=== PATIENT | female | born 1990 | race African-American/Black ===

== ENCOUNTER → 2017-01-28 | Outpatient (CLI) | payer BC ==
[~2017-01-28] MED LIST: UNKNOWN ABX PO
[2017-01-31 01:46] LABS: CHLAMYDIA TRACH RNA*** NOT DETECTED (NOT DETECTED); GC (NEIS GONORRHOEAE)RNA** NOT DETECTED (NOT DETECTED)
== END | disposition home or self-care (01) ==
LOC: C.LABSPEC 17:41
PROVIDERS: ATTEND Physician Assistant
DX: Z01.419 Encounter for gynecological examination (general) (routine) without abnormal findings (principal)

== ENCOUNTER 2017-04-11 21:09 | Emergency (ER) | payer SELFPAY ==
[~2017-04-11] VITALS: Ht 167.6 cm; Wt 79.9 kg
[2017-04-11 21:28] VITALS: TEMP 36.9; Ht 167.6 cm; Wt 79.9 kg
[2017-04-11] MEDS ORDERED: SODIUM CHLORIDE 0.9% 1000ML 1,000 ML IV STA (21:58)
[2017-04-11] MEDS ORDERED: MULT-513 PO (22:07)
[2017-04-11] MEDS ORDERED: KETOROLAC TROMETHAMINE 30 MG/ML VIAL IV STA (22:23)
[2017-04-11 22:36] VITALS: O2SAT 100
[2017-04-11 22:36] LABS: BASO % 0.2 %; BASO ABS # 0.02 K/uL (0-0.2); EOS % 1.6 %; EOS ABS # 0.14 K/uL (0-0.5); HEMATOCRIT 35.4 % (37-47); HEMOGLOBIN 12.2 g/dL (12.0-16.0); IG# 0.02 K/uL (0.00-0.02); LYMPH % 33.1 %; LYMPH ABS # 2.88 K/uL (1.2-3.4); MEAN CELL VOLUME 85.7 fL (80-100); MEAN CORPUSCULAR HEMOGLOBIN 29.5 pg (25-34); MEAN CORPUSCULAR HGB CONC 34.5 g/dl (32-36); MEAN PLATELET VOLUME 10.7 fL (7.4-10.4); MONO % 10.7 %; MONO ABS # 0.93 K/uL (0.11-0.59); NEUT % 54.2 %; NEUT ABS # 4.72 K/uL (1.4-6.5); PLATELET COUNT 245 K/uL (130-400); RED CELL DISTRIBUTION WIDTH CV 12.7 % (11.5-14.5); RED CELL DISTRIBUTION WIDTH SD 39.2 fL (36.4-46.3); WHITE BLOOD COUNT 8.71 K/uL (4.8-10.8)
[2017-04-11 22:53] LABS: ALBUMIN 3.5 gm/dl (3.4-5.0); ALT/SGPT 13 U/L (12-78); BLOOD UREA NITROGEN 16 mg/dl (7-18); CALCIUM 9.2 mg/dl (8.5-10.1); CARBON DIOXIDE 26 mmol/L (21-32); CREATININE 1.08 mg/dl (0.60-1.20); GLUCOSE 83 mg/dl (70-99); POTASSIUM 3.3 mmol/L (3.5-5.1); SODIUM 137 mmol/L (136-145)
[2017-04-11 22:56] LABS: ALKALINE PHOSPHATASE 79 U/L (45-117); AST/SGOT 12 U/L (15-37); TOTAL PROTEIN 8.3 gm/dl (6.4-8.2)
[2017-04-12] MEDS ORDERED: POTASSIUM CHLORIDE 10 MEQ TABCR PO STA (00:08)
[2017-04-12 00:45] VITALS: BP 101/69; PULSE 76; O2SAT 96
--- NOTE | 2017-04-12 06:09 | EMERGENCY ROOM VISIT NOTE ---
History First contact with patient: 21:54 Chief Complaint: ABDOMINAL PAIN Stated Complaint: WEAK, BAD CRAMPS Nursing Triage Summary: pt c/o abdominal cramping. states she is 1week late on her period and intermittent cramping began 4 days ago. states she has some nausea, no vomiting. denies diarrhea, urinary symptoms. also c/o weakness, states "I felt so weak today after I got out of the shower." upon assessment pt alert and oriented x4. pt breathing WNL. History of Present Illness The patient is a 26 year old female who presents to the Emergency Room with complaints of left lower suprapubic pain for the past few days who is late for her menstrual period. pain described as cramping and currently 4 out of 10. Movement makes it worse and nothing makes it better. Patient denies dysuria, hematuria, frequency, urgency, back pain, flank pain, vaginal itching or discharge, chest pain, dyspnea. She took a test at home and was negative. Review of Systems See HPI for pertinent positives & negatives. A total of 10 systems reviewed and were otherwise negative. Past Medical/Surgical History Medical Problems: (1) Major depressive disorder, recurrent severe without psychotic features (2) No pertinent past medical history Family History Patient reports no known family medical history. Social History Smoking Status: Never Smoker Alcohol Use: none Drug Use: none Marital Status: single Housing Status: lives with significant other Occupation Status: employed Current/Historical Medications Scheduled Multivitamins/Minerals (Mvi With Minerals), 1 TAB PO DAILY Physical Exam Vital Signs Date Time Temp Pulse Resp B/P (MAP) Pulse Ox O2 Delivery O2 Flow Rate FiO2 04/12/17 00:45 76 18 101/69 96 04/11/17 23:37 83 18 109/69 99 Room Air 04/11/17 22:37 77 18 117/90 100 Room Air 04/11/17 22:37 71 04/11/17 22:36 100 Room Air 04/11/17 21:28 36.9 90 18 122/74 97 Room Air Physical Exam VITALS: Vitals are noted on the nurse's note and reviewed by myself. Vital signs stable. GENERAL: Pleasant female, in no acute distress, nondiaphoretic, well-developed well-nourished. SKIN: The skin was without rashes, erythema, edema, or bruising. There is no tenting of the skin. Capillary reflex less than 2 seconds. HEAD: Normocephalic atraumatic. EARS: External auditory canals clear, tympanic membranes pearly mays without erythema or effusion bilaterally. EYES: Pupils equal round and reactive to light and accommodation. Conjunctivae without injection, sclerae without icterus. Extraocular movements intact. NOSE: Patent, turbinates without inflammation or discharge. MOUTH: Mucous membranes moist. . Pharynx without erythema or exudate. Uvula midline. Airway patent. Tongue does not deviate. NECK: Supple without nuchal rigidity. No lymphadenopathy. No thyromegaly. Cervical spine is nontender. No JVD. HEART: Regular rate and rhythm without murmurs gallops or rubs. LUNGS: Clear to auscultation bilaterally without wheezes, rales or rhonchi. No dullness to percussion. No retractions or accessory muscle use. ABDOMEN: Positive bowel sounds x 4. Normal tympanic percussion. Soft, tender to palpation suprapubic region, no CVA tenderness, without masses or organomegaly. Morales sign negative. No guarding or rebound tenderness. MUSCULOSKELETAL: No muscle atrophy, erythema, or edema noted. NEURO: Patient was alert and oriented to person place and time. Normal sensation to light and sharp touch. No focal neurological deficits. Medical Decision & Procedures Laboratory Results 04/11/17 22:08 Red Blood Count 4.13, Mean Corpuscular Volume 85.7, Mean Corpuscular Hemoglobin 29.5, Mean Corpuscular Hemoglobin Concent 34.5, Mean Platelet Volume 10.7, Neutrophils (%) (Auto) 54.2, Lymphocytes (%) (Auto) 33.1, Monocytes (%) (Auto) 10.7, Eosinophils (%) (Auto) 1.6, Basophils (%) (Auto) 0.2, Neutrophils # (Auto ) 4.72, Lymphocytes # (Auto) 2.88, Monocytes # (Auto) 0.93, Eosinophils # (Auto ) 0.14, Basophils # (Auto) 0.02 04/11/17 22:08 Test 04/11/17 22:00 04/11/17 22:08 Urine Color YELLOW Urine Appearance CLEAR (CLEAR) Urine pH 6.5 (4.5-7.5) Urine Specific [place] 1.013 (1.000-1.030) Urine Protein NEG (NEG) Urine Glucose (UA) NEG (NEG) Urine Ketones NEG (NEG) Urine Occult Blood NEG (NEG) Urine Nitrite NEG (NEG) Urine Bilirubin NEG (NEG) Urine Urobilinogen NEG (NEG) Urine Leukocyte Esterase TRACE (NEG) Urine WBC (Auto) 1-5 /hpf (0-5) Urine RBC (Auto) 0-4 /hpf (0-4) Urine Hyaline Casts (Auto) 0 /lpf (0-5) Urine Epithelial Cells (Auto) >30 /lpf (0-5) Urine Bacteria (Auto) NEG (NEG) Urine Test NEG (NEG) White Blood Count 8.71 K/uL (4.8-10.8) Red Blood Count 4.13 M/uL (4.2-5.4) Hemoglobin 12.2 g/dL (12.0-16.0) Hematocrit 35.4 % (37-47) Mean Corpuscular Volume 85.7 fL (80-100) Mean Corpuscular Hemoglobin 29.5 pg (25-34) Mean Corpuscular Hemoglobin Concent 34.5 g/dl (32-36) Platelet Count 245 K/uL (130-400) Mean Platelet Volume 10.7 fL (7.4-10.4) Neutrophils (%) (Auto) 54.2 % Lymphocytes (%) (Auto) 33.1 % Monocytes (%) (Auto) 10.7 % Eosinophils (%) (Auto) 1.6 % Basophils (%) (Auto) 0.2 % Neutrophils # (Auto) 4.72 K/uL (1.4-6.5) Lymphocytes # (Auto) 2.88 K/uL (1.2-3.4) Monocytes # (Auto) 0.93 K/uL (0.11-0.59) Eosinophils # (Auto) 0.14 K/uL (0-0.5) Basophils # (Auto) 0.02 K/uL (0-0.2) RDW Standard Deviation 39.2 fL (36.4-46.3) RDW Coefficient of Variation 12.7 % (11.5-14.5) Immature Granulocyte % (Auto) 0.2 % Immature Granulocyte # (Auto) 0.02 K/uL (0.00-0.02) Anion Gap 7.0 mmol/L (3-11) Est Creatinine Clear Calc Drug Dose 85.6 ml/min Estimated GFR () 83.2 Estimated GFR (Non- 71.8 BUN/Creatinine Ratio 15.0 (10-20) Calcium Level 9.2 mg/dl (8.5-10.1) Total Bilirubin 0.2 mg/dl (0.2-1) Direct Bilirubin < 0.1 mg/dl (0-0.2) Aspartate Amino Transf (AST/SGOT) 12 U/L (15-37) Alanine Aminotransferase (ALT/SGPT) 13 U/L (12-78) Alkaline Phosphatase 79 U/L (45-117) Total Protein 8.3 gm/dl (6.4-8.2) Albumin 3.5 gm/dl (3.4-5.0) Medications Administered Medications (Trade) Dose Ordered Sig/[place]ouard Route Start Time Stop Time Status Last Admin Dose Admin Sodium Chloride 1,000 ml @ 999 mls/hr Q1H1M STAT IV 04/11/17 21:58 04/11/17 22:58 DC 04/11/17 22:32 999 MLS/HR Ketorolac Tromethamine (Toradol Inj) 30 mg NOW STAT IV 04/11/17 22:23 04/11/17 22:24 DC 04/11/17 22:32 30 MG Potassium Chloride (Klor-Con M10) 20 meq NOW STAT PO 04/12/17 00:08 04/12/17 00:09 DC 04/12/17 00:42 20 MEQ ED Course Prior records/ancillary studies reviewed. Triage Nursing notes reviewed. Additional history obtained from boyfriend The patient's history was concerning for suprapubic abdominal pain. Differential diagnosis: Differential diagnosis includes salpingitis, , ectopic , incomplete , septic , ruptured ovarian cyst, ovarian torsion, Mittelschmerz, endometritis, dysmenorrhea, appendicitis, PID, and others. Physical examination findings: As above. ER treatment provided: Toradol On reassessment the patient felt better. Diagnostics interpreted by me: The labs revealed urine hCG. No leukocytosis Imaging studies: Ultrasound concerning for left ovarian cyst per radiology Exam and history seem consistent with left ovarian cyst. Patient was pain free after being medicated as above. She did not have acute abdomen on exam. She is well-appearing. She was not . She is advised to follow-up with OB in a few days and repeat pelvic ultrasound for resolution of cyst. She is advised to return to the ER immediately for severe pain, fevers, vomiting, worsening signs or symptoms or as needed. Patient and related out of the ER without difficulties with her friend. By the evaluation outlined above emergent etiologies such as salpingitis, , ectopic , incomplete , septic , ovarian torsion, Mittelschmerz, endometritis, dysmenorrhea, appendicitis, PID, as well as others were deemed relatively unlikely. The pt informed about the findings as listed above. All questions were answered and pleased with the treatment. Return instructions were outlined and the patient was discharged in stable condition. Referral: The patient was referred back to CH[facility] MANAGEMENT FACILITATOR for follow-up in 2 to 3 days for a recheck of the current condition. Case reviewed by attending The chart was completed utilizing [employer] voice recognition software. Grammatical errors, random word insertions, pronoun errors, and incomplete sentences are an occassional consequence of this system due to software limitations, ambient noise, and hardware issues. Any formal questions or concerns about the content, text, or information contained within the body of this dictation should be directly addressed to the physician hair assistant for clarification. Medical Decision As above Medication Reconcilliation Current Medication List: was personally reviewed by me Blood Pressure Screening Patient's blood pressure: Normal blood pressure Impression Primary Impression: Left ovarian cyst Departure Information Dispostion Home / Self-Care Condition GOOD Forms HOME CARE DOCUMENTATION FORM, IMPORTANT VISIT INFORMATION Patient Instructions My [facility], ED Cyst Ovarian Additional Instructions DO NOT drive, drink alcohol, operate machinery, or perform dangerous activities today. You were given medications in the ER that can affect your ability to safely function or operate a vehicle. Recommend repeat pelvic ultrasound in 6 weeks for resolution of cyst. Rest. Stay well hydrated. No strenuous activity until symptoms resolve. Ibuprofen(Motrin, Advil) may be used for fever or pain. Use 600mg every six hours as needed. Take with food. Avoid using more than 2400mg in a 24 hour period. Do not use 2400mg per day for more than three consecutive days without physician direction. Prolonged inappropriate use can lead to stomach upset or ulcers. (AND/OR) Acetaminophen(Tylenol) may be used for fever or pain. Use 1000mg every six hours as needed. Avoid using more than 3000mg in a 24 hour period. Rest and drink plenty of fluids as tolerated. Continue current medications. Return to the ER immediately for severe pain, heavy vaginal bleeding, abdominal pain, vomiting, fevers, chest pains, difficulty breathing, worsening of your condition, or as needed. Follow up with your CHANGE MANAGEMENT FACILITATOR in 2-3 days for a recheck of your current condition.
--- NOTE | 2017-04-12 06:44 | DIAGNOSTIC IMAGING REPORT ---
TRANSVAG-FEMALE PELVIS CLINICAL HISTORY: Pelvic pain. COMPARISON STUDY: None. FINDINGS: The uterus measures 7.7 x 3.9 x 5.3 cm. The endometrium is thickened, measuring 1.8 cm in thickness. The right ovary is normal, measuring 3.2 x 1.3 x 1.4 cm. The left ovary measures 3.1 x 1.5 x 3.1 cm. Note was made of a complex lesion which measures approximately 2.3 x 1.6 x 2 cm which likely arises from the left ovary. During real-time imaging, this did not appear to be separate from the left ovary. This lesion is hypoechoic. There is color flow within each ovary. Small amount of fluid within the pelvis was noted. IMPRESSION: 1. Complex 2.3 cm lesion arising from the left ovary. By report, urine test is negative. This favors a hemorrhagic/corpus luteal cyst however a follow-up pelvic ultrasound in 6 weeks to ensure resolution is recommended. 2. No sonographic evidence of ovarian torsion. 3. Endometrial thickening of 1.8 cm which could be correlated with menstrual cycle. Electronically signed by: Dylon Callaway M.D. 04/12/2017 6:43 AM Dictated Date/Time: 04/12/2017 6:32 AM
== END 2017-04-12 00:45 | disposition home or self-care (01) ==
LOC: C.EDB 21:10 → C.EDC 04-12 00:45
DX: N83.202 Unspecified ovarian cyst, left side (principal); F33.2 Major depressive disorder, recurrent severe without psychotic features

== ENCOUNTER 2017-06-14 17:47 | Emergency (ER) | payer SELFPAY ==
[~2017-06-14] VITALS: Ht 167.6 cm; Wt 80.7 kg
[~2017-06-14 17:47] MED LIST changes: +MULT-513 PO; -UNKNOWN ABX PO
[2017-06-14 17:48] VITALS: TEMP 36.8; Ht 167.6 cm; Wt 80.7 kg
[2017-06-14 19:21] LABS: BASO % 0.3 %; BASO ABS # 0.02 K/uL (0-0.2); EOS % 1.7 %; EOS ABS # 0.12 K/uL (0-0.5); HEMOGLOBIN 12.9 g/dL (12.0-16.0); IG# 0.01 K/uL (0.00-0.02); LYMPH % 39.7 %; LYMPH ABS # 2.77 K/uL (1.2-3.4); MEAN CELL VOLUME 85.1 fL (80-100); MEAN CORPUSCULAR HEMOGLOBIN 29.7 pg (25-34); MEAN CORPUSCULAR HGB CONC 34.9 g/dl (32-36); MEAN PLATELET VOLUME 10.3 fL (7.4-10.4); MONO % 6.6 %; MONO ABS # 0.46 K/uL (0.11-0.59); NEUT % 51.6 %; NEUT ABS # 3.59 K/uL (1.4-6.5); PLATELET COUNT 271 K/uL (130-400); RED CELL DISTRIBUTION WIDTH CV 12.5 % (11.5-14.5); RED CELL DISTRIBUTION WIDTH SD 38.6 fL (36.4-46.3); WHITE BLOOD COUNT 6.97 K/uL (4.8-10.8)
--- NOTE | 2017-06-14 19:38 | EMERGENCY ROOM VISIT NOTE ---
History Report prepared by Fatoumata: Tae Arthur Under the Supervision of: Dr. Joy Fields D.O. First contact with patient: 18:23 Chief Complaint: ABDOMINAL PAIN Stated Complaint: ABD PAIN Nursing Triage Summary: Pt c/o LLQ abd pain, intermittent, started last night. Nauseous. Hx ovarian cysts. LMP Apr 18. Pt states Negative 1 week ago. History of Present Illness The patient is a 26 year old female who presents to the Emergency Room with complaints of Waxing and waning left lower quadrant abdominal pain starting yesterday. The patient describes the pain as a sharp pain, and she states that it is worse with sitting up as well as walking. The patient additionally notes that she had pain during intercourse. She has no prior history of STDs and has no concern for exposure to STDs. She has not had any change in urine, and she has had no recent illness. The patient states that she has been constipated this week. She denies any vaginal discharge and bleeding. She has not had her period since April, and she states that multiple home tests have been negative. The patient notes that in April she was found to have an ovarian cyst, though she did not follow up with COMPOUND FILLER, and she was told that it would go away. She denies any fever, chills, cough, and other cold symptoms. She notes that she has a family history of ovarian cysts. Source of History: patient Onset: yesterday Position: abdomen (LLQ) Quality: sharp Timing: waxes/wanes Modifying Factors (Worsening): other (sitting up and walking around) Associated Symptoms: No fevers, No chills, No cough Review of Systems See HPI for pertinent positives & negatives. A total of 10 systems reviewed and were otherwise negative. Past Medical & Surgical Medical Problems: (1) Major depressive disorder, recurrent severe without psychotic features (2) No pertinent past medical history Family History Ovarian cyst Social History Smoking Status: Never Smoker Alcohol Use: none Drug Use: none Marital Status: single Housing Status: lives with significant other Occupation Status: employed Current/Historical Medications Scheduled Multivitamins/Minerals (Mvi With Minerals), 1 TAB PO DAILY Allergies Coded Allergies: No Known Allergies (Unverified , 06/14/17) Physical Exam Vital Signs Date Time Temp Pulse Resp B/P (MAP) Pulse Ox O2 Delivery O2 Flow Rate FiO2 06/14/17 21:53 79 20 127/82 98 06/14/17 20:43 81 18 132/85 97 Room Air 06/14/17 17:48 36.8 81 18 122/83 97 Room Air Physical Exam GENERAL: alert, well appearing, well nourished, no distress, non-toxic EYE EXAM: normal conjunctiva, PERRL and EOM's grossly intact OROPHARYNX: no exudate, no erythema, lips, buccal mucosa, and tongue normal and mucous membranes are moist NECK: supple, no nuchal rigidity, no adenopathy, non-tender LUNGS: Clear to auscultation. Normal chest wall mechanics HEART: no murmurs, S1 normal and S2 normal ABDOMEN: abdomen soft, non-tender, normo-active bowel sounds, no masses, no rebound or guarding. BACK: Back is symmetrical on inspection and there is no deformity, no midline tenderness, no CVA tenderness. SKIN: no rashes and no bruising UPPER EXTREMITIES: upper extremities are grossly normal. LOWER EXTREMITIES: No pitting edema. NEURO EXAM: Normal sensorium, cranial nerves II-XII grossly intact, normal speech, no gross weakness of arms, no gross weakness of legs. Medical Decision & Procedures ER Provider Diagnostic Interpretation: Radiology results have been interpreted by the radiologist and reviewed by me. TRANSVAG-FEMALE PELVIS HISTORY: Pain llq pain, hx cysts COMPARISON: 04/12/2017 FINDINGS: Uterus: 6.3 cm Endometrial stripe: 6 mm Right ovary: 3.7 cm maximum dimension. Normal vascular flow Left ovary: 3.0 cm maximum dimension. Normal vascular flow Miscellaneous:No pelvic free fluid. IMPRESSION: Normal pelvic ultrasound The above report was generated using voice recognition software. It may contain grammatical, syntax or spelling errors. Electronically signed by: Pierre Galarza M.D. 06/14/2017 7:45 PM Dictated Date/Time: 06/14/2017 7:44 PM ABD/PELVIS NO IV OR ORAL CONT CT DOSE: 451.23 mGy.cm HISTORY: Pain llq pain TECHNIQUE: Multiaxial CT images of the abdomen and pelvis were performed without contrast. A dose lowering technique was utilized adhering to the principles of ALARA. COMPARISON STUDY: None. FINDINGS: The lung bases are clear. The unenhanced liver, spleen, gallbladder, pancreas, kidneys, and adrenal glands are within normal limits. No bowel wall thickening or obstruction. The pelvic organs are unremarkable. No suspicious lytic or blastic osseous lesions. Normal appendix. No free fluid within the pelvic cul-de-sac. IMPRESSION: No significant abnormality identified within the abdomen or pelvis. The above report was generated using voice recognition software. It may contain grammatical, syntax or spelling errors. Electronically signed by: Pierre Galarza M.D. 06/14/2017 9:35 PM Dictated Date/Time: 06/14/2017 9:32 PM Laboratory Results 06/14/17 18:55 Red Blood Count 4.35, Mean Corpuscular Volume 85.1, Mean Corpuscular Hemoglobin 29.7, Mean Corpuscular Hemoglobin Concent 34.9, Mean Platelet Volume 10.3, Neutrophils (%) (Auto) 51.6, Lymphocytes (%) (Auto) 39.7, Monocytes (%) (Auto) 6.6, Eosinophils (%) (Auto) 1.7, Basophils (%) (Auto) 0.3, Neutrophils # (Auto) 3.59, Lymphocytes # (Auto) 2.77, Monocytes # (Auto) 0.46, Eosinophils # (Auto) 0.12, Basophils # (Auto) 0.02 06/14/17 18:55 Test 06/14/17 18:55 06/14/17 20:40 White Blood Count 6.97 K/uL (4.8-10.8) Red Blood Count 4.35 M/uL (4.2-5.4) Hemoglobin 12.9 g/dL (12.0-16.0) Hematocrit 37.0 % (37-47) Mean Corpuscular Volume 85.1 fL (80-100) Mean Corpuscular Hemoglobin 29.7 pg (25-34) Mean Corpuscular Hemoglobin Concent 34.9 g/dl (32-36) Platelet Count 271 K/uL (130-400) Mean Platelet Volume 10.3 fL (7.4-10.4) Neutrophils (%) (Auto) 51.6 % Lymphocytes (%) (Auto) 39.7 % Monocytes (%) (Auto) 6.6 % Eosinophils (%) (Auto) 1.7 % Basophils (%) (Auto) 0.3 % Neutrophils # (Auto) 3.59 K/uL (1.4-6.5) Lymphocytes # (Auto) 2.77 K/uL (1.2-3.4) Monocytes # (Auto) 0.46 K/uL (0.11-0.59) Eosinophils # (Auto) 0.12 K/uL (0-0.5) Basophils # (Auto) 0.02 K/uL (0-0.2) RDW Standard Deviation 38.6 fL (36.4-46.3) RDW Coefficient of Variation 12.5 % (11.5-14.5) Immature Granulocyte % (Auto) 0.1 % Immature Granulocyte # (Auto) 0.01 K/uL (0.00-0.02) Anion Gap 6.0 mmol/L (3-11) Est Creatinine Clear Calc Drug Dose 84.5 ml/min Estimated GFR () 81.4 Estimated GFR (Non- 70.2 BUN/Creatinine Ratio 12.8 (10-20) Calcium Level 9.8 mg/dl (8.5-10.1) Total Bilirubin 0.2 mg/dl (0.2-1) Aspartate Amino Transf (AST/SGOT) 12 U/L (15-37) Alanine Aminotransferase (ALT/SGPT) 16 U/L (12-78) Alkaline Phosphatase 95 U/L (45-117) Total Protein 9.2 gm/dl (6.4-8.2) Albumin 4.1 gm/dl (3.4-5.0) Globulin 5.1 gm/dl (2.5-4.0) Albumin/Globulin Ratio 0.8 (0.9-2) Human Chorionic Gonadotropin, Qual NEG (NEG) Urine Color YELLOW Urine Appearance CLEAR (CLEAR) Urine pH 6.0 (4.5-7.5) Urine Specific [place] 1.008 (1.000-1.030) Urine Protein NEG (NEG) Urine Glucose (UA) NEG (NEG) Urine Ketones NEG (NEG) Urine Occult Blood NEG (NEG) Urine Nitrite NEG (NEG) Urine Bilirubin NEG (NEG) Urine Urobilinogen NEG (NEG) Urine Leukocyte Esterase NEG (NEG) Laboratory results per my review. ED Course 1822: The patient was evaluated in room A4. A complete history and physical exam was performed. 2003: I reevaluated the patient, and she was doing okay. 2145: Patient reevaluated and updated on the results. Discussed close follow- up with COMPOUND FILLER. Discussed symptoms to watch and return for, she verbalized understanding and was agreeable with plan. Medical Decision Differential diagnosis: Etiologies such as appendicitis, diverticulitis, PUD, biliary pathology, UTI, pancreatitis, obstruction, mesenteric ischemia, aortic pathology, infections, inflammatory bowel disease, renal colic, as well as others were entertained. Patient well-appearing here despite complaints, no clear evidence of pathology to explain patient's pain. Ultrasound initially pursued due to history of ovarian cysts and no obvious cyst or free fluid indicates this rupture noted. Due to persistence of pain, CT then also pursued, no evidence of acute left lower quadrant pathology noted. Labs otherwise reassuring, urine unremarkable. Patient stable throughout, vital signs reassuring, able to tolerate p.o. Discussed with patient possible differential diagnosis, symptoms to watch and return for, close follow-up with COMPOUND FILLER as a precaution given the history of ovarian cysts and other possible SALON SUPERVISOR pathology. I have a low suspicion for PID , TOA, ectopic , ovarian torsion, acute GI pathology, other pathology, other occult infectious or vascular pathology. Patient verbalized understanding of all of this and was agreeable with plan. Medication Reconcilliation Current Medication List: was personally reviewed by me Blood Pressure Screening Patient's blood pressure: Normal blood pressure Impression Primary Impression: Left lower quadrant pain Scribe Attestation The scribe's documentation has been prepared under my direction and personally reviewed by me in its entirety. I confirm that the note above accurately reflects all work, treatment, procedures, and medical decision making performed by me. Departure Information Dispostion Home / Self-Care Referrals No Doctor, Assigned (PCP) Patient Instructions My [facility] Additional Instructions Please call follow-up with COMPOUND FILLER regarding your abnormal menstrual cycles as well as your pelvic pain. If you have any recurrent or worsening abdominal or pelvic pain, develop fevers or chills, diarrhea, noticed a change in your urine , develop vaginal discharge or abnormal bleeding, you have any other new concerns, please return the emergency room.
--- NOTE | 2017-06-14 19:47 | DIAGNOSTIC IMAGING REPORT ---
TRANSVAG-FEMALE PELVIS HISTORY: Pain llq pain, hx cysts COMPARISON: 04/12/2017 FINDINGS: Uterus: 6.3 cm Endometrial stripe: 6 mm Right ovary: 3.7 cm maximum dimension. Normal vascular flow Left ovary: 3.0 cm maximum dimension. Normal vascular flow Miscellaneous:No pelvic free fluid. IMPRESSION: Normal pelvic ultrasound The above report was generated using voice recognition software. It may contain grammatical, syntax or spelling errors. Electronically signed by: Pierre Galarza M.D. 06/14/2017 7:45 PM Dictated Date/Time: 06/14/2017 7:44 PM
[2017-06-14 19:57] LABS: ALBUMIN 4.1 gm/dl (3.4-5.0); CALCIUM 9.8 mg/dl (8.5-10.1); CREATININE 1.1 mg/dl (0.60-1.20); POTASSIUM 3.8 mmol/L (3.5-5.1)
[2017-06-14 20:01] LABS: TOTAL PROTEIN 9.2 gm/dl (6.4-8.2)
--- NOTE | 2017-06-14 21:36 | DIAGNOSTIC IMAGING REPORT ---
ABD/PELVIS NO IV OR ORAL CONT CT DOSE: 451.23 mGy.cm HISTORY: Pain llq pain TECHNIQUE: Multiaxial CT images of the abdomen and pelvis were performed without contrast. A dose lowering technique was utilized adhering to the principles of ALARA. COMPARISON STUDY: None. FINDINGS: The lung bases are clear. The unenhanced liver, spleen, gallbladder, pancreas, kidneys, and adrenal glands are within normal limits. No bowel wall thickening or obstruction. The pelvic organs are unremarkable. No suspicious lytic or blastic osseous lesions. Normal appendix. No free fluid within the pelvic cul-de-sac. IMPRESSION: No significant abnormality identified within the abdomen or pelvis. The above report was generated using voice recognition software. It may contain grammatical, syntax or spelling errors. Electronically signed by: Pierre Galarza M.D. 06/14/2017 9:35 PM Dictated Date/Time: 06/14/2017 9:32 PM
[2017-06-14 21:53] VITALS: BP 127/82; PULSE 79; O2SAT 98
== END 2017-06-14 21:54 | disposition home or self-care (01) ==
LOC: C.EDB 17:48 → C.EDA 21:54
DX: R10.32 Left lower quadrant pain (principal)